=== PATIENT | male | born 1935 | race Caucasian/White ===

== ENCOUNTER 2021-04-08 10:25 | Inpatient (IN) | payer MEDICARE, BC, OTHER ==
[~2021-04-08] VITALS: Ht 170.2 cm; Wt 75.0 kg
[2021-04-08 12:21] LABS: CLARITY,URINE SLIGHTLY CLOUDY (Clear); COLOR,URINE YELLOW (Yellow); GLUCOSE, URINE NEGATIVE (Neg); KETONES,URINE 15 mg/dl (Neg); LEUKOCYTE ESTERASE ,URINE SMALL (Neg); NITRITES, URINE POSITIVE (Neg); OCCULT BLOOD,URINE SMALL (Neg); PROTEIN,URINE TRACE mg/dl (Neg); UA COLLECTION TYPE FOLEY CATH; UROBILINOGEN,URINE 0.2 E.U/dL (0.2-1.0)
[2021-04-08 12:27] LABS: BACTERIA,URINE 4+ /HPF (Neg); MUCUS STRANDS FEW /LPF (Neg); RBC,URINE 0-2 /HPF (0-2); SQUAMOUS EPITHELIAL CELL,UR FEW /LPF (FEW); WBC,URINE 50-100 /HPF (0-4)
[2021-04-08 13:01] LABS: BASOPHILS % (AUTO) 0.1 % (0-1); EOSINOPHILS % (AUTO) 0 % (0-6); HEMATOCRIT 40.4 % (42.0-52.0); HEMOGLOBIN 13.2 g/dl (14.0-17.9); LYMPHOCYTES % (AUTO) 7.5 % (21-51); MEAN CORPUSCULAR HEMOGLOBIN 28.4 PG (27.0-31.0); MEAN CORPUSCULAR HGB CONC 32.6 g/dL (33.0-36.5); MEAN CORPUSCULAR VOLUME 87.2 FL (78-98); MEAN PLATELET VOLUME 9.2 FL (7.4-10.4); MONOCYTES # (AUTO) 0.7 X10'3 (0-0.9); NEUTROPHILS # (AUTO) 11.5 X10'3 (1.8-7.7); NEUTROPHILS % (AUTO) 87.4 % (42-75); PLATELET COUNT 335 X10'3 (140-440); RED BLOOD COUNT 4.64 X10'6 (4.70-6.10); RED CELL DISTRIBUTION WIDTH 14.7 % (11.5-14.5); WHITE BLOOD COUNT 13.2 X10'3 (4.5-11.0)
[2021-04-08 13:09] LABS: ANION GAP 13 (8-16); CHLORIDE 100 MMOL/L (99-107); GLUCOSE 198 MG/DL (70-104); POTASSIUM 4.6 MMOL/L (3.5-5.1); SODIUM 140 MMOL/L (135-145); TOTAL CARBON DIOXIDE 27.4 MMOL/L (24-32)
[2021-04-08 13:10] LABS: ALANINE AMINOTRANSFERASE 21 U/L (12-78); ALBUMIN 3.3 G/DL (3.4-5.0); ALBUMIN/GLOBULIN RATIO 0.7 (1.1-1.5); ALKALINE PHOSPHATASE 59 IU/L (46-116); ASPARTATE AMINO TRANSFERASE 10 U/L (10-37); BILIRUBIN,TOTAL 0.4 MG/DL (0.1-1.0); BLOOD UREA NITROGEN 11 MG/DL (7-18); BUN/CREATININE RATIO 11.6 (5.4-32.0); CALCIUM 8.7 MG/DL (8.5-10.1); CREATININE 0.95 MG/DL (0.60-1.10); TOTAL PROTEIN 8.1 G/DL (6.4-8.2); eGFR 75 ML/MIN
[2021-04-08 13:11] LABS: AMMONIA < 10 UMOL/L (11-32); LACTIC SEPSIS 3.4 MMOL/L (0.4-2.0)
[2021-04-08] MEDS ORDERED: CefTRIAXone/D5W-Rocephin 1gm 50 ML IV ONE (13:20)
[2021-04-08] MEDS ORDERED: magnesium hydroxide 30ml (MOM) UD suspension PO PRN (14:00)
[2021-04-08] MEDS ORDERED: acetaminophen 325mg tablet PO PRN ×2 (14:00)
[2021-04-08] MEDS: dextrose 5%-1/2 normal saline 1,000 ML IV SCH (14:00)
[2021-04-08] MEDS ORDERED: ondansetron/PF 4mg/2ml inj IV PRN (14:00)
[2021-04-08] MEDS ORDERED: mag hydrox/Alum hydrox/simeth 30ml oral suspension PO PRN (14:00)
[2021-04-08] MEDS ORDERED: morphine 2 MG/ML inj. syringe IV PRN (14:00)
[2021-04-08] MEDS ORDERED: GABA-530 PO (14:07)
[2021-04-08] MEDS ORDERED: PRAV40TA3 PO (14:07)
[2021-04-08] MEDS ORDERED: FURO20TA4 PO (14:07)
[2021-04-08] MEDS ORDERED: METO50TA16 PO (14:07)
[2021-04-08] MEDS ORDERED: METF-438 PO (14:07)
[2021-04-08] MEDS ORDERED: POTA-82 PO (14:07)
--- NOTE | 2021-04-08 17:23 | NUR ---
oral care provided. thick yellow secretions suctioned from mouth. Mouth is dry and cracked. Frequent oral care provided. Large dark purple bruising noted along side of buttocks. Possible DTI, charge attendantBO lam noted. Photos taken but camera and unable to find apartment hotel manager. Redness noted on penis as well. Patient will be frequently repositioned.
[2021-04-08] MEDS ORDERED: FOLIC (18:41)
[2021-04-08] MEDS: metFORMIN 500mg tablet PO SCH (21:02)
[2021-04-08] MEDS: potassium Cl 20 mEq SR tablet PO SCH (21:02)
[2021-04-08] MEDS: docusate sod 100mg capsule PO SCH (21:02)
[2021-04-08] MEDS: metoprolol tartrate 50mg tablet PO SCH (21:03)
[2021-04-09] MEDS: dextrose 5%-1/2 normal saline 1,000 ML IV SCH (00:43)
[2021-04-09] MEDS: morphine 2 MG/ML inj. syringe IV PRN (00:51)
[2021-04-09 02:47] VITALS: BP 131/63
[2021-04-09] MEDS: normal saline 1000ml 1,000 ML IV SCH ×2 (03:37→13:30)
[2021-04-09 06:00] VITALS: BP 136/66
--- NOTE | 2021-04-09 06:19 | NUR ---
Problems reprioritized. Patient report given, questions answered & plan of care reviewed with BO Ballard.
--- NOTE | 2021-04-09 06:19 | NUR ---
Pt began screaming out, "please", and "help". Repositioned patient, administered pain medications, assessed gandhi catheter, attempted to comfort patient. VSS with elevated temp of 100.6 axillary. Will administer tylenol as ordered.
--- NOTE | 2021-04-09 06:45 | NUR ---
Patient in room [facility] 356B. I have received report from BO MARIE and had the opportunity to ask questions and assume patient care.
[2021-04-09 07:00] VITALS: BP 135/77
[2021-04-09 07:44] LABS: BASOPHILS % (AUTO) 0.2 % (0-1); EOSINOPHILS % (AUTO) 0 % (0-6); HEMOGLOBIN 12.2 g/dl (14.0-17.9); LYMPHOCYTES # (AUTO) 1.3 X10'3 (1.1-4.8); LYMPHOCYTES % (AUTO) 10.2 % (21-51); MEAN CORPUSCULAR HEMOGLOBIN 28.2 PG (27.0-31.0); MEAN CORPUSCULAR HGB CONC 32.3 g/dL (33.0-36.5); MEAN CORPUSCULAR VOLUME 87.3 FL (78-98); MEAN PLATELET VOLUME 9.5 FL (7.4-10.4); MONOCYTES # (AUTO) 1.3 X10'3 (0-0.9); MONOCYTES % (AUTO) 10.5 % (2-12); NEUTROPHILS # (AUTO) 9.7 X10'3 (1.8-7.7); NEUTROPHILS % (AUTO) 79.1 % (42-75); PLATELET COUNT 335 X10'3 (140-440); RED BLOOD COUNT 4.35 X10'6 (4.70-6.10); RED CELL DISTRIBUTION WIDTH 14.8 % (11.5-14.5); WHITE BLOOD COUNT 12.3 X10'3 (4.5-11.0)
[2021-04-09 07:55] LABS: ALBUMIN 3.3 G/DL (3.4-5.0); ANION GAP 13 (8-16); BLOOD UREA NITROGEN 16 MG/DL (7-18); BUN/CREATININE RATIO 18.8 (5.4-32.0); CALCIUM 8.7 MG/DL (8.5-10.1); CHLORIDE 101 MMOL/L (99-107); CREATININE 0.85 MG/DL (0.60-1.10); GLUCOSE 181 MG/DL (70-104); POTASSIUM 4.2 MMOL/L (3.5-5.1); SODIUM 140 MMOL/L (135-145); TOTAL CARBON DIOXIDE 25.7 MMOL/L (24-32); eGFR 85 ML/MIN
[2021-04-09] MEDS: potassium Cl 20 mEq SR tablet PO SCH ×2 (08:00→21:18)
[2021-04-09] MEDS: metFORMIN 500mg tablet PO SCH ×2 (08:00→20:00)
[2021-04-09] MEDS: pravastatin 40mg tablet PO SCH (08:00)
[2021-04-09] MEDS: docusate sod 100mg capsule PO SCH ×2 (08:00→21:18)
[2021-04-09] MEDS ORDERED: furosemide 20MG tablet PO SCH (08:00)
[2021-04-09] MEDS: gabapentin 100mg capsule PO SCH (08:00)
[2021-04-09] MEDS: metoprolol tartrate 50mg tablet PO SCH ×2 (08:00→21:26)
[2021-04-09 11:00] VITALS: BP 130/70
[2021-04-09] MEDS: CefTRIAXone/D5W-Rocephin 1gm 50 ML IV SCH (11:00)
[2021-04-09] MEDS: enoxaparin 40mg/0.4ml syringe SUBCUT SCH (11:10)
--- NOTE | 2021-04-09 11:22 | NUR ---
Adebayo Consult: Pt noted w/ bruising on L buttock and abrasion on penis though no open wounds documented. Will continue to monitor. Addendum: 04/09/21 at [address] Amended: Links added.
[2021-04-09 18:00] VITALS: BP 137/79
--- NOTE | 2021-04-09 18:20 | NUR ---
Patient in room [facility] 356. I have received report from Nellie SORIANO and had the opportunity to ask questions and assume patient care.
--- NOTE | 2021-04-09 19:58 | NUR ---
Problems reprioritized. Patient report given, questions answered & plan of care reviewed with BO ROBLEDO.
[2021-04-09] MEDS: lactobacillus rhamnosus 10,000 MMU CELLS/CAPSULE PO SCH (21:18)
[2021-04-10] VITALS: BP 144/61
[2021-04-10] MEDS: normal saline 1000ml 1,000 ML IV SCH ×4 (00:53→21:10)
[2021-04-10] MEDS: morphine 2 MG/ML inj. syringe IV PRN ×2 (05:03→21:04)
[2021-04-10 05:59] LABS: BASOPHILS % (AUTO) 0.3 % (0-1); EOSINOPHILS % (AUTO) 0 % (0-6); HEMATOCRIT 36.3 % (42.0-52.0); HEMOGLOBIN 11.9 g/dl (14.0-17.9); LYMPHOCYTES # (AUTO) 1.2 X10'3 (1.1-4.8); LYMPHOCYTES % (AUTO) 6.6 % (21-51); MEAN CORPUSCULAR HEMOGLOBIN 28.5 PG (27.0-31.0); MEAN CORPUSCULAR HGB CONC 32.8 g/dL (33.0-36.5); MEAN CORPUSCULAR VOLUME 86.9 FL (78-98); MEAN PLATELET VOLUME 9.1 FL (7.4-10.4); MONOCYTES # (AUTO) 1.6 X10'3 (0-0.9); MONOCYTES % (AUTO) 9.1 % (2-12); NEUTROPHILS # (AUTO) 14.6 X10'3 (1.8-7.7); PLATELET COUNT 310 X10'3 (140-440); RED BLOOD COUNT 4.18 X10'6 (4.70-6.10); RED CELL DISTRIBUTION WIDTH 14.7 % (11.5-14.5); WHITE BLOOD COUNT 17.4 X10'3 (4.5-11.0)
[2021-04-10 06:16] LABS: ALBUMIN 2.9 G/DL (3.4-5.0); ANION GAP 12 (8-16); BLOOD UREA NITROGEN 18 MG/DL (7-18); BUN/CREATININE RATIO 25.7 (5.4-32.0); CALCIUM 8.2 MG/DL (8.5-10.1); CHLORIDE 107 MMOL/L (99-107); GLUCOSE 173 MG/DL (70-104); POTASSIUM 3.6 MMOL/L (3.5-5.1); SODIUM 142 MMOL/L (135-145); TOTAL CARBON DIOXIDE 22.8 MMOL/L (24-32); eGFR > 90 ML/MIN
--- NOTE | 2021-04-10 06:50 | NUR ---
Problems reprioritized. Patient report given, questions answered & plan of care reviewed with Abril SORIANO.
[2021-04-10 07:00] VITALS: BP 129/63
[2021-04-10] MEDS: metFORMIN 500mg tablet PO SCH ×2 (08:00→20:00)
[2021-04-10] MEDS: potassium Cl 20 mEq SR tablet PO SCH ×2 (08:00→20:00)
[2021-04-10] MEDS: pravastatin 40mg tablet PO SCH (08:00)
[2021-04-10] MEDS: metoprolol tartrate 50mg tablet PO SCH ×2 (08:00→20:00)
[2021-04-10] MEDS: gabapentin 100mg capsule PO SCH (08:00)
[2021-04-10] MEDS: docusate sod 100mg capsule PO SCH ×2 (08:00→20:00)
[2021-04-10] MEDS: lactobacillus rhamnosus 10,000 MMU CELLS/CAPSULE PO SCH ×2 (08:00→20:00)
--- NOTE | 2021-04-10 09:00 | NUR ---
Patient refused physical assessment
[2021-04-10] MEDS: CefTRIAXone/D5W-Rocephin 1gm 50 ML IV SCH (09:46)
[2021-04-10] MEDS: enoxaparin 40mg/0.4ml syringe SUBCUT SCH (09:47)
--- NOTE | 2021-04-10 10:31 | NUR ---
Dr. Cheng was notified that patient has not been cooperative with care including taking his oral medications.
[2021-04-10 11:00] VITALS: BP 108/50
--- NOTE | 2021-04-10 11:19 | NUR ---
DM Consult: Pt hx T2DM no prior A1C hx w/ A1C pending at this time. Will monitor for A1C results and education needs as medically indicated. Addendum: 04/10/21 at [address] Amended: Links added.
--- NOTE | 2021-04-10 18:20 | NUR ---
Patient in room [facility] 356. I have received report from Abril SORIANO and had the opportunity to ask questions and assume patient care.
[2021-04-10 19:00] VITALS: BP 130/64
[2021-04-11] VITALS: BP 114/46
[2021-04-11] MEDS: morphine 2 MG/ML inj. syringe IV PRN ×3 (03:54→17:30)
[2021-04-11] MEDS: normal saline 1000ml 1,000 ML IV SCH ×2 (06:05→15:23)
[2021-04-11 06:08] LABS: BASOPHILS % (AUTO) 0.2 % (0-1); EOSINOPHILS % (AUTO) 0.1 % (0-6); HEMATOCRIT 36.1 % (42.0-52.0); HEMOGLOBIN 11.7 g/dl (14.0-17.9); LYMPHOCYTES # (AUTO) 1.3 X10'3 (1.1-4.8); LYMPHOCYTES % (AUTO) 10.4 % (21-51); MEAN CORPUSCULAR HEMOGLOBIN 28.8 PG (27.0-31.0); MEAN CORPUSCULAR HGB CONC 32.3 g/dL (33.0-36.5); MEAN CORPUSCULAR VOLUME 89.1 FL (78-98); MONOCYTES # (AUTO) 1.4 X10'3 (0-0.9); MONOCYTES % (AUTO) 10.9 % (2-12); NEUTROPHILS % (AUTO) 78.4 % (42-75); PLATELET COUNT 265 X10'3 (140-440); RED BLOOD COUNT 4.05 X10'6 (4.70-6.10); RED CELL DISTRIBUTION WIDTH 14.9 % (11.5-14.5); WHITE BLOOD COUNT 12.7 X10'3 (4.5-11.0)
--- NOTE | 2021-04-11 06:12 | NUR ---
Patient report given to Jodee SORIANO traveler.
[2021-04-11 06:46] LABS: ALBUMIN 2.3 G/DL (3.4-5.0); ANION GAP 15 (8-16); BLOOD UREA NITROGEN 14 MG/DL (7-18); BUN/CREATININE RATIO 24.1 (5.4-32.0); CALCIUM 7.8 MG/DL (8.5-10.1); CHLORIDE 110 MMOL/L (99-107); CREATININE 0.58 MG/DL (0.60-1.10); GLUCOSE 152 MG/DL (70-104); POTASSIUM 3.1 MMOL/L (3.5-5.1); SODIUM 144 MMOL/L (135-145); eGFR > 90 ML/MIN
--- NOTE | 2021-04-11 07:19 | NUR ---
Patient in room [facility] 356. I have received report from Ciara SORIANO and had the opportunity to ask questions and assume patient care.
[2021-04-11 08:00] VITALS: BP 130/65
[2021-04-11] MEDS: docusate sod 100mg capsule PO SCH ×2 (08:00→20:00)
[2021-04-11] MEDS: pravastatin 40mg tablet PO SCH (08:00)
[2021-04-11] MEDS: potassium Cl 20 mEq SR tablet PO SCH ×2 (08:00→20:00)
[2021-04-11] MEDS: metFORMIN 500mg tablet PO SCH ×2 (08:00→20:00)
[2021-04-11] MEDS: lactobacillus rhamnosus 10,000 MMU CELLS/CAPSULE PO SCH ×2 (08:00→20:00)
[2021-04-11] MEDS: metoprolol tartrate 50mg tablet PO SCH ×2 (08:00→20:00)
[2021-04-11] MEDS: gabapentin 100mg capsule PO SCH (08:00)
[2021-04-11] MEDS: CefTRIAXone/D5W-Rocephin 1gm 50 ML IV SCH (08:37)
[2021-04-11] MEDS: enoxaparin 40mg/0.4ml syringe SUBCUT SCH (08:37)
--- NOTE | 2021-04-11 09:51 | NUR ---
F/u for DM consult: Patient's A1c is 7.0%, well controlled for age. DM education not warranted at this time. Noted pt s/p BSS 04/10 and 04/[address] [facility]aga NPO d/t pt unsafe for PO though full liquid diet remains active in EMR. INO put in new recommendation for NPO diet in EMR. IF pt continues to be unsafe for PO intake recommend nutrition support to meet patient's estimated nutrient needs if within patient's POC. Will continue to follow closely. Addendum: 04/11/21 at [address] Amended: Links added.
--- NOTE | 2021-04-11 10:00 | NUR ---
Patient filled swallow test, patient still NPO. All oral meds not given. Dr. fleming nortified
[2021-04-11 12:00] VITALS: BP 131/86
--- NOTE | 2021-04-11 18:20 | NUR ---
Patient in room [facility] 356. I have received report from Jodee SORIANO and had the opportunity to ask questions and assume patient care.
--- NOTE | 2021-04-11 18:30 | NUR ---
Problems reprioritized. Patient report given, questions answered & plan of care reviewed with Ciara SORIANO.
--- NOTE | 2021-04-11 18:40 | NUR ---
Patient in room [facility] 356. I have received report from Jodee SORIANO Traveler and had the opportunity to ask questions and assume patient care.
--- NOTE | 2021-04-11 18:46 | NUR ---
promotional table spacer promotional table spacer Page Sent promotional table spacer PAGER ID: [phone] MESSAGE: Sarah Aguilar 356B. Need IV replacements for K and mag please. K is 3.1.blaineseun Ciara [id number] (81 character message out of a maximum of 240) Close [X] Send Another Page Thank you for visiting [facility] promotional table spacer promotional table spacer
--- NOTE | 2021-04-11 19:34 | NUR ---
promotional table spacer promotional table spacer Page Sent promotional table spacer PAGER ID: [phone] MESSAGE: 356B Nikolay is NPO. K is 3.1. Please can I have order for IV K & mg replacement , Also IV Ativan 0.5 for anxiety Thks Ciara [id number]. (130 character message out of a maximum of 240) Close [X] Send Another Page Thank you for visiting [facility] promotional table spacer promotional table spacer
--- NOTE | 2021-04-11 19:35 | NUR ---
New orders for K & mg IV replacement and 2 x dose of ativan q6hr prn anxiety only received and entered into matrix.
[2021-04-11] MEDS ORDERED: LORazepam 2 mg/ml vial IV PRN (19:40)
[2021-04-11] MEDS ORDERED: magnesium 4gm in 100ml NS 100 ML IV PRN (19:40)
[2021-04-11 20:00] VITALS: BP 142/76
[2021-04-11] MEDS: potassium Cl 40MEQ/1/2NS 520ml 520 ML IV PRN (22:49)
[2021-04-11] MEDS: K and/or MAG REPLACEMENT MC SCH (22:54)
[2021-04-12] VITALS: BP 153/66
[2021-04-12] MEDS ORDERED: morphine 10mg/0.5ml (conc. morphine) oral syringe PO PRN (04:35)
--- NOTE | 2021-04-12 06:30 | NUR ---
Problems reprioritized. Patient report given, questions answered & plan of care reviewed with Jodee SORIANO Traveler.
--- NOTE | 2021-04-12 06:30 | NUR ---
Problems reprioritized. Patient report given, questions answered & plan of care reviewed with Jodee SORIANO Traveler.
--- NOTE | 2021-04-12 06:30 | NUR ---
Patient in room [facility] 356. I have received report from Ciara SORIANO and had the opportunity to ask questions and assume patient care.
[2021-04-12 06:55] LABS: BASOPHILS # (AUTO) 0.1 X10'3 (0-0.2); BASOPHILS % (AUTO) 0.5 % (0-1); EOSINOPHILS # (AUTO) 0.1 X10'3 (0-0.9); EOSINOPHILS % (AUTO) 0.5 % (0-6); HEMATOCRIT 37.4 % (42.0-52.0); LYMPHOCYTES # (AUTO) 1.2 X10'3 (1.1-4.8); LYMPHOCYTES % (AUTO) 8.4 % (21-51); MEAN CORPUSCULAR HEMOGLOBIN 28.1 PG (27.0-31.0); MEAN CORPUSCULAR HGB CONC 31.9 g/dL (33.0-36.5); MEAN CORPUSCULAR VOLUME 87.8 FL (78-98); MEAN PLATELET VOLUME 9.6 FL (7.4-10.4); MONOCYTES # (AUTO) 1.3 X10'3 (0-0.9); MONOCYTES % (AUTO) 9.3 % (2-12); NEUTROPHILS # (AUTO) 11.6 X10'3 (1.8-7.7); NEUTROPHILS % (AUTO) 81.3 % (42-75); PLATELET COUNT 307 X10'3 (140-440); RED BLOOD COUNT 4.26 X10'6 (4.70-6.10); RED CELL DISTRIBUTION WIDTH 14.5 % (11.5-14.5); WHITE BLOOD COUNT 14.2 X10'3 (4.5-11.0)
[2021-04-12 07:10] LABS: ALBUMIN 2.3 G/DL (3.4-5.0); ANION GAP 16 (8-16); BLOOD UREA NITROGEN 9 MG/DL (7-18); BUN/CREATININE RATIO 16.1 (5.4-32.0); CALCIUM 7.9 MG/DL (8.5-10.1); CHLORIDE 108 MMOL/L (99-107); CREATININE 0.56 MG/DL (0.60-1.10); GLUCOSE 140 MG/DL (70-104); POTASSIUM 3.1 MMOL/L (3.5-5.1); SODIUM 143 MMOL/L (135-145); TOTAL CARBON DIOXIDE 18.8 MMOL/L (24-32); eGFR > 90 ML/MIN
--- NOTE | 2021-04-12 07:10 | NUR ---
Jeff Smith, 356B: Need a picc or midline. night nurse stated that 5 attempt was done on patient with no success [facility] [phone]
[2021-04-12 08:00] VITALS: BP 138/70
[2021-04-12] MEDS: pravastatin 40mg tablet PO SCH (08:00)
[2021-04-12] MEDS: lactobacillus rhamnosus 10,000 MMU CELLS/CAPSULE PO SCH ×2 (08:00→20:00)
[2021-04-12] MEDS: potassium Cl 20 mEq SR tablet PO SCH ×2 (08:00→20:00)
[2021-04-12] MEDS: metoprolol tartrate 50mg tablet PO SCH ×2 (08:00→20:00)
[2021-04-12] MEDS: gabapentin 100mg capsule PO SCH (08:00)
[2021-04-12] MEDS: docusate sod 100mg capsule PO SCH ×2 (08:00→20:00)
[2021-04-12] MEDS: metFORMIN 500mg tablet PO SCH ×2 (08:00→20:00)
[2021-04-12 11:00] VITALS: BP 142/76
[2021-04-12] MEDS: enoxaparin 40mg/0.4ml syringe SUBCUT SCH (11:12)
[2021-04-12] MEDS: CefTRIAXone/D5W-Rocephin 1gm 50 ML IV SCH (11:12)
[2021-04-12] MEDS: potassium Cl 40MEQ/1/2NS 520ml 520 ML IV PRN (12:20)
[2021-04-12] MEDS: normal saline 1000ml 1,000 ML IV SCH ×2 (12:26→20:01)
[2021-04-12] MEDS: K and/or MAG REPLACEMENT MC SCH ×2 (12:35→19:44)
--- NOTE | 2021-04-12 12:37 | NUR ---
Patient failed speech evaluation, still NPO. PO meds not given due to risk of aspiration
[2021-04-12 18:00] VITALS: BP 158/80
--- NOTE | 2021-04-12 18:37 | NUR ---
Problems reprioritized. Patient report given, questions answered & plan of care reviewed with Prudent RN..
--- NOTE | 2021-04-12 19:26 | NUR ---
Patient in room [facility] 356. I have received report from MELY SORIANO and had the opportunity to ask questions and assume patient care.
[2021-04-12] MEDS: levoFLOXACIN-Levaquin 750MG/D5 150 ML IV SCH (20:00)
--- NOTE | 2021-04-12 20:11 | NUR ---
Non administered all PO medications. Patient failed swallow study.
--- NOTE | 2021-04-12 20:16 | NUR ---
CALLED PHARMACY FOR LEVAQIN WHICH WAS DUE AT 1430. PHARMACY OK TO ADMINISTER LATER.
[2021-04-12] MEDS ORDERED: ketorolac tromethamine 15mg/ml inj. IV ONE (23:40)
[2021-04-13] VITALS: BP 158/85
[2021-04-13 06:16] LABS: BASOPHILS # (AUTO) 0.1 X10'3 (0-0.2); EOSINOPHILS # (AUTO) 0.2 X10'3 (0-0.9); EOSINOPHILS % (AUTO) 1.3 % (0-6); HEMATOCRIT 37.9 % (42.0-52.0); HEMOGLOBIN 12.3 g/dl (14.0-17.9); LYMPHOCYTES % (AUTO) 7.4 % (21-51); MEAN CORPUSCULAR HEMOGLOBIN 28.3 PG (27.0-31.0); MEAN CORPUSCULAR HGB CONC 32.6 g/dL (33.0-36.5); MEAN CORPUSCULAR VOLUME 86.9 FL (78-98); MEAN PLATELET VOLUME 9.7 FL (7.4-10.4); MONOCYTES # (AUTO) 1.5 X10'3 (0-0.9); MONOCYTES % (AUTO) 11.1 % (2-12); NEUTROPHILS # (AUTO) 10.8 X10'3 (1.8-7.7); NEUTROPHILS % (AUTO) 79.2 % (42-75); PLATELET COUNT 340 X10'3 (140-440); RED BLOOD COUNT 4.36 X10'6 (4.70-6.10); RED CELL DISTRIBUTION WIDTH 14.6 % (11.5-14.5); WHITE BLOOD COUNT 13.6 X10'3 (4.5-11.0)
--- NOTE | 2021-04-13 06:21 | NUR ---
Problems reprioritized. Patient report given, questions answered & plan of care reviewed with MELY SORIANO.
--- NOTE | 2021-04-13 06:39 | NUR ---
Patient in room [facility] 356. I have received report from Marisol SORIANO and had the opportunity to ask questions and assume patient care.
[2021-04-13 06:40] LABS: ALBUMIN 2.1 G/DL (3.4-5.0); ANION GAP 16 (8-16); BLOOD UREA NITROGEN 6 MG/DL (7-18); BUN/CREATININE RATIO 9.4 (5.4-32.0); CALCIUM 7.6 MG/DL (8.5-10.1); CHLORIDE 106 MMOL/L (99-107); CREATININE 0.64 MG/DL (0.60-1.10); GLUCOSE 129 MG/DL (70-104); POTASSIUM 3.1 MMOL/L (3.5-5.1); SODIUM 141 MMOL/L (135-145); TOTAL CARBON DIOXIDE 19.1 MMOL/L (24-32); eGFR > 90 ML/MIN
[2021-04-13 08:00] VITALS: BP 145/60
[2021-04-13] MEDS: lactobacillus rhamnosus 10,000 MMU CELLS/CAPSULE PO SCH ×2 (08:00→20:00)
[2021-04-13] MEDS: pravastatin 40mg tablet PO SCH (08:00)
[2021-04-13] MEDS: gabapentin 100mg capsule PO SCH (08:00)
[2021-04-13] MEDS: potassium Cl 20 mEq SR tablet PO SCH ×2 (08:00→20:00)
[2021-04-13] MEDS: docusate sod 100mg capsule PO SCH ×2 (08:00→20:00)
[2021-04-13] MEDS: metFORMIN 500mg tablet PO SCH ×2 (08:00→20:00)
[2021-04-13] MEDS: K and/or MAG REPLACEMENT MC SCH ×2 (08:00→20:00)
[2021-04-13] MEDS: levoFLOXACIN-Levaquin 750MG/D5 150 ML IV SCH (08:54)
[2021-04-13] MEDS: potassium Cl 40MEQ/1/2NS 520ml 520 ML IV PRN (08:58)
[2021-04-13] MEDS: enoxaparin 40mg/0.4ml syringe SUBCUT SCH (08:59)
[2021-04-13] MEDS: normal saline 1000ml 1,000 ML IV SCH ×2 (09:00→17:30)
[2021-04-13] MEDS ORDERED: magnesium Cl slow-release 64mg tablet PO PRN (09:55)
[2021-04-13] MEDS ORDERED: magnesium 2GM in 50ml NS 50 ML IV PRN (09:55)
[2021-04-13] MEDS ORDERED: magnesium 4gm in 100ml NS 100 ML IV PRN (09:55)
--- NOTE | 2021-04-13 12:31 | NUR ---
Kylie called that the back that she spoke with dr. Cheng that there is no need for picc/midline as patient had peripheral 18gauge IV placed yesterday to the left upper arm which is ok for PPN
--- NOTE | 2021-04-13 12:44 | NUR ---
PAGER ID: [phone] MESSAGE: Pt is Sarah Aguilar, 356B: Patient groan in pain, can I get order for Tylenol suppository for him? Jodee [phone]
[2021-04-13] MEDS ORDERED: acetaminophen 325mg tablet PO PRN (12:45)
[2021-04-13] MEDS ORDERED: traMADol 50MG tablet PO PRN (12:45)
[2021-04-13] MEDS: metoprolol tartrate 50mg tablet PO SCH ×2 (13:16→20:00)
--- NOTE | 2021-04-13 13:22 | NUR ---
PAGER ID: [phone] MESSAGE: Jeff Smith: 356B: do you want Tylenol suppository: Patient unable to swallow, failed speech evaluation [facility] [phone]
[2021-04-13] MEDS ORDERED: acetaminophen 325mg rectal suppository RC PRN ×2 (13:30→14:00)
[2021-04-13] MEDS ORDERED: Dextrose 10%-water IV solution 1,000 ML IV PRN (16:20)
--- NOTE | 2021-04-13 16:33 | NUR ---
PPN consult: Pt s/p BSS with ST recs NPO. Pt day 5 with no PO intake. Paged MD and TC to RN with recommendation for Corpak placement for EN rather than PPN as pt with a functioning gut and PPN is for short term nutrition. Did not hear back from MD however per strip catcher pt to proceed with PPN. PPN recommendations below have been d/w clinical pharmacist and will NOT meet patient's estimated energy needs given high dextrose formula. Estimated nutrient needs were calculated using IBW was current documented wt isn't scaled. Noted pt with BLE 1+ edema, given prolonged NPO status and mild fluid retention pt meets criteria for non-severe malnutrition. Pt admit for acute metabolic/toxic encephalopathy and UTI secondary to Pseudomonas per MD note. LBM 04/11. With routine bowel care available however held d/t NPO status. Will continue to follow closely. Recommendations: 1) Consider EN given failed BSS and pt with functioning gut 2) Continuous PPN per MD using 2:1 Clinimix-E 4.25/10 at 80 mL/hr with additional 250 mL 20% intralipids at 20.83 mL/hr for 12 hours to provide 2170 mL total volume/day, 1479 kcal, 82 g protein, 192 g dext (1.77 mg/kg/min dext load), and 50 g lipids. Will NOT meet estimated energy needs 3) Prealbumin and TG q Saturday/ 4) Daily scaled weights 5) Bowel care per rx Addendum: 04/13/21 at [address] Amended: Links added.
[2021-04-13 17:37] LABS: MAGNESIUM 1.7 MG/DL (1.5-2.4); PREALBUMIN 11.5 MG/DL (19-36)
[2021-04-13 18:00] VITALS: BP 170/92
--- NOTE | 2021-04-13 19:12 | NUR ---
Patient in room [facility] 356. I have received report from MELY SORIANO and had the opportunity to ask questions and assume patient care.
[2021-04-13] MEDS ORDERED: ZINC/COPPER/MANGANESE/SELENIUM 0.5 ML, chromic chloride inj. 5 MCG in AA 4.25%/CALCIUM/... IV SCH (20:00)
[2021-04-13] MEDS ORDERED: ZINC/COPPER/MANGANESE/SELENIUM 1 ML, chromic chloride inj. 10 MCG in AA 4.25%/CALCIUM/L... IV SCH (20:00)
[2021-04-13] MEDS: fat emulsion IV bag 250 ML IV SCH (21:15)
[2021-04-13] MEDS ORDERED: hydrALAZINE 20mg/ml inj. IV SCH (23:10)
[2021-04-13] MEDS: morphine 2 MG/ML inj. syringe IV PRN (23:13)
[2021-04-13] MEDS: hydrALAZINE 20mg/ml inj. IV PRN (23:29)
[2021-04-14] VITALS: BP 189/94
[2021-04-14] MEDS ORDERED: hydrALAZINE 20mg/ml inj. IV SCH (02:00)
--- NOTE | 2021-04-14 06:22 | NUR ---
Problems reprioritized. Patient report given, questions answered & plan of care reviewed with MELY SORIANO.
--- NOTE | 2021-04-14 06:57 | NUR ---
Patient in room [facility] 356. I have received report from corin SORIANO and had the opportunity to ask questions and assume patient care.
[2021-04-14 08:00] VITALS: BP 155/71
[2021-04-14] MEDS: potassium Cl 20 mEq SR tablet PO SCH ×2 (08:00→20:00)
[2021-04-14] MEDS: lactobacillus rhamnosus 10,000 MMU CELLS/CAPSULE PO SCH ×2 (08:00→20:00)
[2021-04-14] MEDS: metFORMIN 500mg tablet PO SCH ×2 (08:00→20:00)
[2021-04-14] MEDS: metoprolol tartrate 50mg tablet PO SCH ×2 (08:00→20:00)
[2021-04-14] MEDS: docusate sod 100mg capsule PO SCH ×2 (08:00→20:00)
[2021-04-14] MEDS: pravastatin 40mg tablet PO SCH (08:00)
[2021-04-14] MEDS: gabapentin 100mg capsule PO SCH (08:00)
[2021-04-14 08:04] LABS: ALANINE AMINOTRANSFERASE 15 U/L (12-78); ALBUMIN 2.3 G/DL (3.4-5.0); ALBUMIN/GLOBULIN RATIO 0.5 (1.1-1.5); ALKALINE PHOSPHATASE 89 IU/L (46-116); ANION GAP 22 (8-16); ASPARTATE AMINO TRANSFERASE 16 U/L (10-37); BILIRUBIN,TOTAL 0.6 MG/DL (0.1-1.0); BLOOD UREA NITROGEN 7 MG/DL (7-18); BUN/CREATININE RATIO 11.3 (5.4-32.0); CALCIUM 8.1 MG/DL (8.5-10.1); CHLORIDE 103 MMOL/L (99-107); CREATININE 0.62 MG/DL (0.60-1.10); GLUCOSE 210 MG/DL (70-104); MAGNESIUM 1.7 MG/DL (1.5-2.4); PHOSPHORUS 2.5 MG/DL (2.3-4.5); SODIUM 137 MMOL/L (135-145); TOTAL PROTEIN 7.1 G/DL (6.4-8.2); eGFR > 90 ML/MIN
[2021-04-14 08:07] LABS: POTASSIUM 2.7 MMOL/L (3.5-5.1)
[2021-04-14] MEDS: enoxaparin 40mg/0.4ml syringe SUBCUT SCH (08:07)
[2021-04-14 08:08] LABS: TOTAL CARBON DIOXIDE 12.4 MMOL/L (24-32)
[2021-04-14] MEDS: levoFLOXACIN-Levaquin 750MG/D5 150 ML IV SCH (08:08)
[2021-04-14] MEDS: hydrALAZINE 20mg/ml inj. IV PRN (08:24)
--- NOTE | 2021-04-14 08:47 | NUR ---
PAGER ID: [phone] MESSAGE: Star Jeff, Sarah: 356B: critical result: potassium:2.7, Co2:12.4, . is BP is 155/71, HR: 128. he is on PPN at 30ml/hr to increase to 80. I gave hydralazine 5mg for the BP, do you still want me to increase the PPN rate to 80ml/hr Jodee: [phone]
[2021-04-14] MEDS: morphine 2 MG/ML inj. syringe IV PRN ×3 (10:40→23:11)
[2021-04-14 11:00] VITALS: BP 116/74
[2021-04-14] MEDS: sodium bicarbonate (8.4%) inj. 100 MEQ in dextrose 5%-water 1,000 ML IV SCH ×2 (12:41→19:20)
[2021-04-14] MEDS: K and/or MAG REPLACEMENT MC SCH ×2 (12:45→19:12)
[2021-04-14] MEDS: potassium Cl 40MEQ/1/2NS 520ml 520 ML IV PRN ×2 (12:45→17:08)
--- NOTE | 2021-04-14 12:56 | NUR ---
PICC RN, Kylie, is aware of pt's need for PICC line for TPN. Pt began PPN on the prior shift via an 18g peripheral extended IV. Pt currently also has an additional PIV at [facility]. Kylie stated she's unable to place PICC today, yet will place a PICC 04/17 if still warranted, and if pt must have TPN over weekend to ask MD for a CVL. Primary RN notified.
--- NOTE | 2021-04-14 14:00 | NUR ---
Unable to get orthostatic BP, patient not cooperative and screaming
[2021-04-14] MEDS ORDERED: MESSAGE TO PHARMACY PO ONE (15:30)
[2021-04-14] MEDS ORDERED: glucagon, human recombinant 1mg kit SUBCUT PRN (15:30)
[2021-04-14] MEDS ORDERED: dextrose 50%-water 50ml dispensing syringe IV PRN ×2 (15:30)
[2021-04-14] MEDS ORDERED: dextrose ORAL solution 15 GM/59 ML bottle PO PRN ×2 (15:30)
[2021-04-14] MEDS: insulin regular, human U-100 3ml vial - multi-dose SQ SCH ×2 (15:56→21:59)
--- NOTE | 2021-04-14 16:01 | NUR ---
Spoke with Dr Cheng regarding PICC placement and because Extended dwell catheter is in place, it will be used for PPN until Saturday when the family and patient will decide a course of care, such as feeding tube placement. Dr Cheng did not want a PICC placed at this time. Charge nurse Brianda notified of delaying PICC placement until Saturday after speaking with the family. Requested Charge nurse to educate bedside Jodee SORIANO of MD decision. Addendum: 04/14/21 at 1612 by Kylie Bradley RN Amended: Links added.
--- NOTE | 2021-04-14 17:30 | NUR ---
Extended peripheral IV line on left forearm was infiltrated. Arm is swollen and red. IV was discontinue. Patient was given 2mg morphine, warm compressor applied to arm and elevated on pillow. DR Cheng was notified.
[2021-04-14 18:00] VITALS: BP 117/66
--- NOTE | 2021-04-14 19:29 | NUR ---
Problems reprioritized. Patient report given, questions answered & plan of care reviewed with Prudence RN.
[2021-04-14] MEDS: ZINC/COPPER/MANGANESE/SELENIUM 0.5 ML, chromic chloride inj. 5 MCG in AA 4.25%/CALCIUM/... IV SCH (20:13)
[2021-04-14] MEDS: fat emulsion IV bag 250 ML IV SCH (20:22)
[2021-04-14] MEDS: insulin glargine (Lantus) pen - multi-dose SQ SCH (22:07)
[2021-04-15] VITALS: BP 142/78
[2021-04-15] MEDS: insulin regular, human U-100 3ml vial - multi-dose SQ SCH ×3 (02:24→14:36)
[2021-04-15 05:44] LABS: ALANINE AMINOTRANSFERASE 16 U/L (12-78); ALBUMIN/GLOBULIN RATIO 0.4 (1.1-1.5); ALKALINE PHOSPHATASE 100 IU/L (46-116); ANION GAP 11 (8-16); ASPARTATE AMINO TRANSFERASE 11 U/L (10-37); BILIRUBIN,TOTAL 0.4 MG/DL (0.1-1.0); BLOOD UREA NITROGEN 14 MG/DL (7-18); BUN/CREATININE RATIO 21.5 (5.4-32.0); CHLORIDE 102 MMOL/L (99-107); CREATININE 0.65 MG/DL (0.60-1.10); GLUCOSE 288 MG/DL (70-104); MAGNESIUM 1.7 MG/DL (1.5-2.4); PHOSPHORUS 1.8 MG/DL (2.3-4.5); POTASSIUM 3.4 MMOL/L (3.5-5.1); SODIUM 135 MMOL/L (135-145); TOTAL CARBON DIOXIDE 22.2 MMOL/L (24-32); TOTAL PROTEIN 6.9 G/DL (6.4-8.2); eGFR > 90 ML/MIN
--- NOTE | 2021-04-15 06:56 | NUR ---
Problems reprioritized. Patient report given, questions answered & plan of care reviewed with EVIN SORIANO.
[2021-04-15] MEDS ORDERED: Neutra Phos packet PO PRN (07:20)
--- NOTE | 2021-04-15 07:24 | NUR ---
Patient in room [facility] 356. I have received report from Marisol SORIANO and had the opportunity to ask questions and assume patient care.
[2021-04-15] MEDS ORDERED: sodium phosphate inj. 15 MMOL in dextrose 5%-water 250 ML IV PRN (07:25)
[2021-04-15] MEDS ORDERED: sodium phosphate inj. 30 MMOL in dextrose 5%-water 250 ML IV PRN (07:25)
[2021-04-15] MEDS ORDERED: potassium Cl 40MEQ/1/2NS 520ml 520 ML IV PRN ×2 (07:25)
[2021-04-15] MEDS: levoFLOXACIN-Levaquin 750MG/D5 150 ML IV SCH (07:40)
[2021-04-15] MEDS: morphine 2 MG/ML inj. syringe IV PRN ×4 (07:52→20:51)
[2021-04-15 08:00] VITALS: BP 136/75
[2021-04-15] MEDS: K and/or MAG REPLACEMENT MC SCH ×2 (08:00→20:52)
[2021-04-15] MEDS: docusate sod 100mg capsule PO SCH ×2 (08:00→20:00)
[2021-04-15] MEDS: gabapentin 100mg capsule PO SCH (08:00)
[2021-04-15] MEDS: metFORMIN 500mg tablet PO SCH ×2 (08:00→20:00)
[2021-04-15] MEDS: lactobacillus rhamnosus 10,000 MMU CELLS/CAPSULE PO SCH ×2 (08:00→20:00)
[2021-04-15] MEDS: pravastatin 40mg tablet PO SCH (08:00)
[2021-04-15] MEDS: metoprolol tartrate 50mg tablet PO SCH ×2 (08:00→20:00)
[2021-04-15] MEDS: potassium Cl 20 mEq SR tablet PO SCH ×2 (08:00→20:00)
[2021-04-15] MEDS: ZINC/COPPER/MANGANESE/SELENIUM 0.5 ML, chromic chloride inj. 5 MCG in AA 4.25%/CALCIUM/... IV SCH ×2 (08:04→20:09)
[2021-04-15] MEDS: sodium bicarbonate (8.4%) inj. 100 MEQ in dextrose 5%-water 1,000 ML IV SCH (08:06)
[2021-04-15] MEDS: enoxaparin 40mg/0.4ml syringe SUBCUT SCH (08:18)
--- NOTE | 2021-04-15 08:30 | NUR ---
Student documentation: I have reviewed and agree with all interventions, assessments performed and documented by Abdifatah [employer] Student.
[2021-04-15 11:00] VITALS: BP 122/69
--- NOTE | 2021-04-15 15:40 | NUR ---
PAGER ID: [phone] MESSAGE: Rigoberto Aguilar 356B- DC'ed bicarb, can we give him some fluids NS? 100?? Please advise. Thank you so much! Kayla Connor [phone]
[2021-04-15] MEDS: normal saline 1000ml 1,000 ML IV SCH (15:55)
[2021-04-15 18:00] VITALS: BP 125/76
--- NOTE | 2021-04-15 18:15 | NUR ---
Patient in room [facility] 356. I have received report from BO CLEARY and had the opportunity to ask questions and assume patient care. Addendum: 04/15/21 at 1926 by Olga Lidia Coyne RN Amended: Links added.
--- NOTE | 2021-04-15 18:29 | NUR ---
Patient in room [facility] 356. I have received report from BO CLEARY AND W[employer] STUDENT and had the opportunity to ask questions and assume patient care. Addendum: 04/15/21 at 1830 by Olga Lidia Coyne RN Amended: Links added.
--- NOTE | 2021-04-15 18:49 | NUR ---
Problems reprioritized. Patient report given, questions answered & plan of care reviewed with Jeanine SORIANO.
--- NOTE | 2021-04-15 18:51 | NUR ---
Problems reprioritized. Patient report given, questions answered & plan of care reviewed with Mago SORIANO.
--- NOTE | 2021-04-15 20:36 | NUR ---
PT PULLED RIGHT HAND IV OUT WITH SITTER PRESENT. DRESSED AREA NOTED CATH INTACT AND NEW START DIFFICULT RIGHT FOREARM #22 WITH 2 PEOPLE HOLDING HIS ARM X1 STICK AND NS WITH POTASSIUM INFUSING.
[2021-04-15] MEDS: fat emulsion IV bag 250 ML IV SCH (20:52)
[2021-04-15] MEDS: insulin glargine (Lantus) pen - multi-dose SQ SCH (20:59)
[2021-04-16] VITALS: BP 134/57
[2021-04-16] MEDS: morphine 2 MG/ML inj. syringe IV PRN ×2 (00:27→04:58)
[2021-04-16] MEDS: insulin regular, human U-100 3ml vial - multi-dose SQ SCH (02:21)
[2021-04-16] MEDS ORDERED: potassium phosphate inj 15 MMOL in normal saline 250ml IV soln 250 ML IV ONE (03:45)
[2021-04-16] MEDS: fat emulsion IV bag 250 ML IV SCH (04:40)
[2021-04-16] MEDS: normal saline 1000ml 1,000 ML IV SCH (06:03)
--- NOTE | 2021-04-16 06:05 | NUR ---
Student documentation: I have reviewed and agree with all interventions, assessments performed and documented by BALJINDER COHN RN STUDENT.Student Medication Administration: For this medication-pass time frame, all medication were reviewed, dispensed, administered and documented per hospital policy by BALJINDER COHN STUDENT. Addendum: 04/16/21 at 0606 by Olga Lidia Coyne RN Amended: Links added.
[2021-04-16] MEDS: ZINC/COPPER/MANGANESE/SELENIUM 0.5 ML, chromic chloride inj. 5 MCG in AA 4.25%/CALCIUM/... IV SCH (06:36)
--- NOTE | 2021-04-16 06:56 | NUR ---
Problems reprioritized. Patient report given, questions answered & plan of care reviewed with DYLAN SORIANO. Addendum: 04/16/21 at 0656 by Olga Lidia Coyne RN Amended: Links added.
--- NOTE | 2021-04-16 07:15 | NUR ---
got report from field hauler. When going to check on pt he had wash clothes tapped to his hands. both iv were infiltrated and extravasation Addendum: 04/16/21 at 0749 by Sofya Araujo RN not done with note
[2021-04-16 07:25] LABS: ALANINE AMINOTRANSFERASE 15 U/L (12-78); ALBUMIN 1.9 G/DL (3.4-5.0); ALBUMIN/GLOBULIN RATIO 0.4 (1.1-1.5); ALKALINE PHOSPHATASE 88 IU/L (46-116); ANION GAP 11 (8-16); ASPARTATE AMINO TRANSFERASE 16 U/L (10-37); BILIRUBIN,TOTAL 0.5 MG/DL (0.1-1.0); BLOOD UREA NITROGEN 17 MG/DL (7-18); BUN/CREATININE RATIO 23.6 (5.4-32.0); CALCIUM 8.2 MG/DL (8.5-10.1); CHLORIDE 101 MMOL/L (99-107); CREATININE 0.72 MG/DL (0.60-1.10); GLUCOSE 268 MG/DL (70-104); MAGNESIUM 1.8 MG/DL (1.5-2.4); POTASSIUM 4.1 MMOL/L (3.5-5.1); SODIUM 134 MMOL/L (135-145); TOTAL CARBON DIOXIDE 22.1 MMOL/L (24-32); TOTAL PROTEIN 6.4 G/DL (6.4-8.2); eGFR > 90 ML/MIN
--- NOTE | 2021-04-16 07:46 | NUR ---
PAGER ID: [phone] MESSAGE: 356b, pt has no IVs both were infiltrated severely from the PPN/ lipids, can I order roxanol pt is in severe pain. Also pharmacy suggests cold compress and nitroglycerin topical for the area. STAT please [email or web address]
--- NOTE | 2021-04-16 07:49 | NUR ---
got report from manager mechanical. When going to check on pt he had wash clothes tapped to his hands. both IVs right and left were infiltrated and extravasation had started. All IVs both stopped and Both had to be pulled and pt is a hard stick. Pt was in extreme pain and saying ouch/ stop to everything. I contacted dr fleming with a STAT to get some Roxanol ordered/ something else for pain and be able to apply nitroglycerin topical to the left arm. after stopping PPN/Lipids and puling IV they were leaking out of the pts arm . Charge nurse is aware, nursing supervisor endless track vehicle, and Director have all been made aware of the situation.
[2021-04-16 08:00] VITALS: BP 137/63
[2021-04-16] MEDS: potassium Cl 20 mEq SR tablet PO SCH (08:00)
[2021-04-16] MEDS: docusate sod 100mg capsule PO SCH (08:00)
[2021-04-16] MEDS: enoxaparin 40mg/0.4ml syringe SUBCUT SCH (08:00)
[2021-04-16] MEDS: lactobacillus rhamnosus 10,000 MMU CELLS/CAPSULE PO SCH (08:00)
[2021-04-16] MEDS: metFORMIN 500mg tablet PO SCH (08:00)
[2021-04-16] MEDS: metoprolol tartrate 50mg tablet PO SCH (08:00)
[2021-04-16] MEDS: gabapentin 100mg capsule PO SCH (08:00)
[2021-04-16] MEDS: pravastatin 40mg tablet PO SCH (08:00)
[2021-04-16] MEDS: levoFLOXACIN-Levaquin 750MG/D5 150 ML IV SCH (08:00)
[2021-04-16] MEDS: K and/or MAG REPLACEMENT MC SCH (08:00)
--- NOTE | 2021-04-16 08:00 | NUR ---
unable to infuse fluids, PPN, lipids, and levoquin. pt IVs infiltrated and pt does not want an IV. doctor was notified.
--- NOTE | 2021-04-16 08:46 | NUR ---
pt refused blood sugar checks, doctor made aware.
[2021-04-16] MEDS ORDERED: morphine 10mg/0.5ml (conc. morphine) oral syringe PO PRN (08:55)
[2021-04-16 11:00] VITALS: BP 127/65
[2021-04-16] MEDS ORDERED: LORazepam 0.5 MG tablet PO PRN (11:15)
--- NOTE | 2021-04-16 11:48 | NUR ---
Page Sent promotional table spacer PAGER ID: [phone] MESSAGE: 356 b jasson, can I get an order for nitroglycerin for the left arm. pharmacy said this will help with absorption of fluids nick Suarez69
[2021-04-16] MEDS: morphine 10mg/0.5ml (conc. morphine) oral syringe PO PRN ×2 (12:27→15:22)
--- NOTE | 2021-04-16 12:57 | NUR ---
Reassessment: Received TC from Pharmacist stating PPN has been stopped this morning d/t extravasation. Pt noted to be confused and pulling IVs out. Pt placed on comfort care today; remains NPO per [facility] 04/13. Will continue to follow. Addendum: 04/16/21 at [address] Amended: Links added.
--- NOTE | 2021-04-16 14:12 | NUR ---
PT ON COMFORT CARE Addendum: 04/16/21 at 1413 by Sofya Araujo RN Amended: Links added.
--- NOTE | 2021-04-16 14:44 | NUR ---
Page Sent PAGER ID: [phone] MESSAGE: John B YUSEF, CAN I GET AN ORDER FOR A SCOPALOMINE PATCH? [phone] RYAN
--- NOTE | 2021-04-16 14:54 | NUR ---
PROVIDED CHEN AND MONCHO CARE
[2021-04-16] MEDS ORDERED: scopolamine 1mg/72 hr patch TD SCH (15:55)
--- NOTE | 2021-04-16 18:32 | NUR ---
Problems reprioritized. Patient report given, questions answered & plan of care reviewed with Dax SORIANO.
--- NOTE | 2021-04-16 18:48 | NUR ---
Patient in room [facility] 356. I have received report from Sofya SORIANO and had the opportunity to ask questions and assume patient care.
[2021-04-16 20:25] VITALS: BP 132/87
[2021-04-17] MEDS: morphine 10mg/0.5ml (conc. morphine) oral syringe PO PRN ×4 (02:12→14:39)
[2021-04-17 06:00] VITALS: BP 145/74
--- NOTE | 2021-04-17 06:34 | NUR ---
Patient in room [facility] 356. I have received report from Dax bradley and had the opportunity to ask questions and assume patient care.
--- NOTE | 2021-04-17 07:04 | NUR ---
Problems reprioritized. Patient report given, questions answered & plan of care reviewed with Shashi SORIANO.
--- NOTE | 2021-04-17 09:59 | NUR ---
changed pts linens, applied new opti foams to reddened areas on sacrum an hips. I cleaned pt with warm wash clothes and applied barrier cream to the excoriated scrotum and penile area. also provided oral care for pt, mucosal membranes are very dry, will continue to do this throughout shift.
--- NOTE | 2021-04-17 09:59 | NUR ---
Page Sent PAGER ID: [phone] MESSAGE: 356 b Jeff, can I get an order for having no IV. thanks nick [phone]
--- NOTE | 2021-04-17 10:46 | NUR ---
Page Sent PAGER ID: [phone] MESSAGE: 356b judie Aguilar does not need a sitter but still has sitter orders. can I get a no sitter order? [phone] nick
[2021-04-17] MEDS ORDERED: Lorazepam PO (10:52)
[2021-04-17] MEDS ORDERED: MORP10SY6 PO (10:52)
--- NOTE | 2021-04-17 14:09 | NUR ---
Problems reprioritized. Patient report given, questions answered & plan of care reviewed with VAN FROM [facility] .
--- NOTE | 2021-04-17 14:47 | NUR ---
PT HAD NO IVS. PT DISCHARGED WAS PRINTED AND GIVEN TO [facility] PERSONNEL. PT IS STABLE TO TRANSFER TO [place] AND LEFT WITH [facility] PERSON[facility].
--- NOTE | 2021-04-17 14:51 | NUR ---
PT RASH IN GROIN AREA HAD IMPROVED, PT LEFT BEFORE BEING ABLE TO RETAKE PICTURES.
--- NOTE | 2021-04-17 15:20 | NUR ---
Pt was seen by wound care prior to discharge. He was very agitated on the visit. No new wounds were noted on examination and pt was well offloaded. There was some redness to neli area and groin, would have recommended nystatin powder if pt were not already discharged at this time.
== END 2021-04-17 14:45 | disposition home or self-care (01) | DRG 871 ==
LOC: ER 10:26 → ED HOLD 14:02 → EDBEDREQ 04-09 01:49 → SUR 3N 04-09 02:17
PROVIDERS: ADMIT Internal Medicine; ATTEND Internal Medicine
DX: A41.9 Sepsis, unspecified organism (principal); G92.8 Other toxic encephalopathy; N39.0 Urinary tract infection, site not specified; R13.10 Dysphagia, unspecified; R65.20 Severe sepsis without septic shock; B96.5 Pseudomonas (aeruginosa) (mallei) (pseudomallei) as the cause of diseases classified elsewhere; B95.4 Other streptococcus as the cause of diseases classified elsewhere; E87.6 Hypokalemia; F03.90 Unspecified dementia, unspecified severity, without behavioral disturbance, psychotic disturbance, mood disturbance, and anxiety; E11.9 Type 2 diabetes mellitus without complications; Z66 Do not resuscitate; Z88.2 Allergy status to sulfonamides; Z51.5 Encounter for palliative care
CPT/HCPCS: 36415; 70450; 71045; 74176; 76937; 80048; 80053; 81001; 82140; 82948; 83036; 83605; 83735; 83880; 84100; 84134; 84478; 85025; 87040; 87077; 87081; 87088; 87186; 92508; 92616; 93005; 96374; 97110; 97161; 97530; 99285; G0378; J0360; J0696; J1650; J1815; J1885; J1956; J2270; J3480; J7030; J7050